=== PATIENT | female | born 1945 | race Caucasian/White ===

== ENCOUNTER → 2016-06-30 | Outpatient (CLI) | payer SELFPAY ==
[~2016-06-30] MED LIST: CALC600T7 PO; ESTE500T PO; FISH100035 PO; NEUROTIN PO
--- NOTE | 2016-06-30 14:27 | REP ---
MR LUMBAR SPINE WITHOUT AND WITH CONTRAST: HISTORY: Spinal stenosis. CONTRAST: ProHance 12 mL. COMPARISON: 01/18/2012 Decreased signal intensity on T2-weighted images is present in the L2-3 through L5-S1 intervertebral discs. The discs are decreased in height. These findings are consistent with disc degeneration. There is no disc bulge or herniation at the L1-2 level. The L1 nerves exit the neural foramina without compression. A diffuse disc bulge is present at the L2-3 level. There is hypertrophy of the ligamenta flava and posterior articulating facets. These findings produce minimal central canal stenosis. The L2 nerves exit the neural foramina without compression. A diffuse disc bulge is present at the L3-4 level. There is hypertrophy of the ligamenta flava and posterior articulating facets. These findings produce minimal central canal stenosis. The L3 nerves exit the neural foramina without compression. A diffuse disc bulge is present at the L4-5 level. There is minimal compression of the thecal sac. There is hypertrophy of the posterior articulating facets. The L4 nerves exit the neural foramina without compression. An interspinous spacer is present. A diffuse disc bulge is present at the L5-S1 level. There is no thecal sac or nerve compression. There is hypertrophy of the posterior articulating facets. The L5 nerves exit the neural foramina without compression. The conus medullaris is normal in appearance terminating at the level of the L1 vertebral body. There is an old compression fracture of the L1 vertebral body with mild height loss. Normal signal intensity is present in the lumbar vertebral bodies. A hemangioma is present in the T12 vertebral body. IMPRESSION: 1. Minimal central canal stenosis at the L2-3 and L3-4 levels secondary to disc bulge, ligamentous and facet hypertrophy. 2. Diffuse disc bulge at the L4-5 level with minimal thecal sac compression. An interspinous spacer is present. This is a new finding. 3. Diffuse disc bulge at the L5-S1 level without thecal sac or nerve compression. There is no other significant change. Signed by Driss Pastrana MD 06/30/2016 02:31 P
== END ==
LOC: M RAD 12:47
PROVIDERS: ATTEND Physician Assistant
DX: M48.06 Spinal stenosis, lumbar region (principal); M51.26 Other intervertebral disc displacement, lumbar region
CPT/HCPCS: 72158; A9576

== ENCOUNTER → 2017-10-06 | Outpatient (REF) | payer OTHER | LOC: M LAB REF 18:08 | DX: E04.2 Nontoxic multinodular goiter (principal) | CPT/HCPCS: 88173 ==

== ENCOUNTER → 2022-11-02 | Outpatient (CLI) | payer MEDICARE | LOC: M RAD 13:04 | PROVIDERS: ATTEND Internal Medicine Cardiovascular Disease | DX: R09.89 Other specified symptoms and signs involving the circulatory and respiratory systems (principal); I73.9 Peripheral vascular disease, unspecified ==